=== PATIENT | male | born 1995 | race Asian ===

== ENCOUNTER 2016-12-21 08:18 | Emergency (ER) | payer SELFPAY ==
[~2016-12-21] VITALS: Ht 175.3 cm; Wt 90.7 kg
[2016-12-21] MEDS ORDERED: Hydrogen Peroxide 120ml Bottle TOPIC ONE (08:26)
[2016-12-21 08:30] VITALS: BP 144/82
[2016-12-21] MEDS ORDERED: Bacitracin Oint UD TOPIC ONE (09:02)
--- NOTE | 2016-12-21 09:08 | Emergency Room Report ---
History of Present Illness General Chief Complaint: Laceration Source: Patient Present Illness HPI 21 YO M with bleeding, ?laceration overlying left eyebrow after accidentally dropping weight-lifting bar on forehead. Patient slid under weight bar on bench and at same time lifted off the bar that had weights attached, he instinctively pushed bar away from his face and the bar "skidded off my forehead." He denies LOC. Currently c/o sharp headache to left forehead. Denies vision changes, blurry vision, nausea/vomiting. Not on ASA or other AC. Denies reduced range of motion of left eye, pain with extra ocular movement. Didnt know he was bleeding "until my friend told me" but saw "piece of skin with my eyebrow" on the ground. States tetanus is up to date. Denies other injury. Allergies: Coded Allergies: No Known Allergies (Unverified , 12/21/16) Patient History Past Medical History: none Past Surgical History: none Pertinent Family History: none Social History: Denies: alcohol use, drug use, smoking Immunizations: UTD Reviewed Nursing Documentation: PMH: Agreed, PSxH: Agreed Nursing Documentation-PMH Past Medical History: No Stated History Review of Systems All Other Systems: negative except mentioned in HPI Physical Exam Vital Signs Date Time Temp Pulse Resp B/P Pulse Ox O2 Delivery O2 Flow Rate FiO2 12/21/16 08:21 98.4 73 16 144/82 97 Room Air Sp02 EP Interpretation: reviewed, normal General Appearance: normal inspection, well appearing, no apparent distress, alert, GCS 15, non-toxic Head: normocephalic, other - 2.5cm area of avulsed skin overlying medial aspect of left eyebrow and below. Missing part of eyebrow. No active bleeding; dried blood on forehead. There is also an abrasion to left forehead. Eyes: bilateral eye EOMI, bilateral eye PERRL ENT: normal ENT inspection, hearing grossly normal, normal voice Neck: normal inspection, full range of motion, supple, no bony tend Respiratory: normal inspection, lungs clear, normal breath sounds, no respiratory distress, no retraction, no wheezing Cardiovascular #1: regular rate, rhythm, no edema Gastrointestinal: normal inspection, normal bowel sounds, non tender, soft, no guarding, no hernia Genitourinary: no CVA tenderness Musculoskeletal: normal inspection, back normal, normal range of motion, Parisa' s Sign negative Neurologic: normal inspection, alert, oriented x3, responsive, 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 Also abrasion to left forehead. No laceration, nothing suturable Tetanus up to date Bleeding controlled Patient refused CT head - concerned for payment since he is "from [place] and not sure if my insurance works here." I had registration discuss with patient, but patient actually states he "doesnt need the CT." Area cleaned, bandaged DC home Understands importance of returning to ED with worsening symptoms, headache, nausea/vomiting, blurry/change of vision Tylenol only PRN headache Will followup with PMD/Neuro back home as needed for worsening symptoms Last Vital Signs Date Time Temp Pulse Resp B/P Pulse Ox O2 Delivery O2 Flow Rate FiO2 12/21/16 08:30 98.4 73 16 144/82 97 Room Air Status: improved Disposition: HOME, SELF-CARE Condition: Improved Referrals: NOT CHOSEN IPA/MD,REFERRING (PCP) Patient Instructions: Concussion, Adult, [id number], Deep Skin Avulsion, Nonsutured Laceration Care Additional Instructions: - Change bandage once a day - keep area clean and dry - Return immediately to nearest ER for worsening headache, nausea/vomiting, change in vision or blurry vision, if you dont feel "right" or if friends/ family notice you are acting differently - Follow up with Neurologist back home in [place] if you continue to have headaches, dizziness or other symptoms in the next weeks/months - Apply ice to area of pain or take over the counter tylenol every 6-8 hours for pain RENAY ONOFRE M.D. Dec 21, 2016 09:08
[2016-12-21 09:12] VITALS: BP 144/82
== END 2016-12-21 09:12 | disposition home or self-care (01) ==
LOC: EMR 08:53
DX: S01.80XA Unspecified open wound of other part of head, initial encounter (principal); S00.12XA Contusion of left eyelid and periocular area, initial encounter; W22.8XXA Striking against or struck by other objects, initial encounter; Y93.B3 Activity, free weights; Y92.9 Unspecified place or not applicable; Y99.8 Other external cause status
CPT/HCPCS: 99282